=== PATIENT | male | born 1955 | race Caucasian/White ===

== ENCOUNTER 2017-06-13 02:07 | Observation (INO) | payer BC ==
[2017-06-13 02:48] LABS: CHLORIDE,CL 105 mmol/L (98-107); SODIUM,NA 142 mmol/L (136-145)
[2017-06-13] MEDS ORDERED: Lidocaine 1% 30 ML SDV INJECT ONE (03:21)
[2017-06-13] MEDS ORDERED: Diphtheria,Pertussis(Acell),Tetanus Vaccine 0.5 ML Syringe IM ONE (03:56)
--- NOTE | 2017-06-13 04:54 | ER ---
Date of Service: 06/13/2017 SUBJECTIVE: Moise presents to the emergency room following a fall. The patient's brother states that he was consuming large amounts of whiskey at [facility] and subsequently fell backwards striking the occipital portion of his head on the concrete. The patient was subsequently unresponsive for approximately 2 minutes and immediately following regaining consciousness was quite confused. EMS was summoned. On their arrival, the patient was awake, answering all questions appropriately. He had suffered a significant hematoma/stellate laceration to the right occipital portion of his head. EMS staff states that the patient was repeating himself and was confused about his activities of the night. EMS staff states that the patient has been experiencing some anterograde amnesia and has been repeating himself numerous times throughout his transport here to the hospital. The patient was placed on a long spine board with C-collar. He was not complaining of any discomfort to EMS and was hemodynamically stable during transport. PAST MEDICAL HISTORY: Denies. MEDICATIONS: None. ALLERGIES: NKDA. REVIEW OF SYSTEMS: General: Denies any recent illness. HEENT: Please see history of present illness. Denies any headache. Denies any blurred vision. Respiratory: No shortness of breath. Cardiac: Denies any chest pain. Spine: Denies any neck or back pain. GI: Denies any abdominal pain, nausea, or vomiting. : Denies any dysuria. Musculoskeletal: No myalgias or arthralgias. Denies any musculoskeletal trauma. Neurologic: Please see history of present illness. PHYSICAL EXAMINATION: General: This is a 62-year-old male patient, who is in no acute distress. Vital Signs: Please see trauma notes. HEENT: Head is normocephalic. He does have a large hematoma with subsequent pain with stellate laceration with the center portion being abraded hematoma. The laceration is roughly 8-shaped with the 4 vertical lacerations being approximately 2 cm each. No obvious trauma noted to the underlying structures of the skull. Ears, TMs are clear. There is no hemotympanum. Eyes, PERRLA. Extraocular movements are intact. There is no funduscopic papilledema noted. Chest: No chest wall trauma. Lungs: Clear to auscultation. Heart: Regular rate and rhythm. Abdomen: No abdominal trauma. Bowel sounds are normoactive. Pelvis is stable. Musculoskeletal: No extremity trauma noted. The patient moves all his extremities appropriately. Neurologic: Cranial nerves 2 through 12 are intact. The patient's speech is fluent. He is exhibiting signs of anterograde amnesia repeating himself and having to be redirected numerous times. He is moving all of his extremities appropriately. He does recall that he does have a job and states that he does need to work tomorrow. He does not recall going out to drinking tonight. His cranial nerves are otherwise intact. He is not experiencing any evidence of any facial droop or other focal neuro symptoms. CT scan of the patient's brain and C-spine were obtained and were negative for acute pathology. LABORATORY DATA: WBCs 6.5, hemoglobin is 14.5, platelets are 228. Coags; PT is 9.3, INR is 0.9. Chemistry; sodium is 142, potassium is 4.0, chloride is 105, bicarb is 25, BUN is 20, creatinine is 1.1. GFR is greater than 60. Glucose is 120. Calcium is 8.6. Blood alcohol is 253. EMERGENCY ROOM COURSE: IV access had been established by EMS. The patient was removed from the long spine board after he was brought into the [facility]. To note, a trauma code was requested by EMS. The patient was hemodynamically stable and remained hemodynamically stable during his stay in the emergency room. He was not experiencing any respiratory distress. He did continue to experience anterograde amnesia and was repeating himself and did have poor recollection of his short-term memory. He remained stable in my care in the emergency room. ASSESSMENT: 1. Closed head injury with anterograde amnesia. 2. Laceration/hematoma to the occipital portion of the head measuring a total of 5 cm in length. 3. Acute alcohol intoxication. PLAN: The patient will be admitted on observation status. We will have him in room #216, so we can monitor him closely. He does need to be redirected frequently. We will do q. hour neuro checks. At this point, we will keep his IV saline locked. The patient's tetanus was updated as well. The patient does not identify a primary care provider. He is intoxicated as is his brother, so we will keep him a code level 1 at this time. MWK: 06/13/2017 04:21:05 MODL: 06/13/2017 04:48:07 /[id number]
[2017-06-13] MEDS ORDERED: Sodium Chloride 0.9% 10 ML Syringe IV PRN (09:23)
[2017-06-13 12:04] VITALS: BP 116/71
--- NOTE | 2017-06-14 00:05 | DISCH ---
ADMITTING DIAGNOSES: 1. Trauma alert secondary to closed head injury. 2. Acute alcohol intoxication. SUBJECTIVE: Moise was admitted early this morning following a fall and subsequent closed head injury. The patient was transported to [facility] via EMS. He fell and sustained approximately 5 cm stellate laceration to the back portion of his head and was experiencing significant anterograde amnesia. He was also found to have an elevated blood alcohol of 253. The patient was admitted and had hourly neuro checks. By noon today, he was answering all questions appropriately and was able to recall events of the night. He was able to communicate with the friends and family and was deemed to be stable for discharge. PHYSICAL EXAMINATION: General: This is a 62-year-old male patient, in no acute distress. Vital signs. At discharge, blood pressure is 116/71, heart rate 89, temperature is 36.8, respiratory rate 16, O2 saturations 97%. Skin: Warm, pink, and dry. HEENT: Continued mild oozing from the laceration that was stapled last evening. Eyes, PERRLA. Extraocular movements are intact. Ears, TMs are clear. Mouth, oral mucosa is moist. Lungs: Clear to auscultation. Heart: Regular rate and rhythm. Abdomen: Soft, nontender. Neurologic: The patient is alert, answers all questions appropriately. He still has minimal recollection of the night before but is able to recall events of the morning. He was again experiencing approximately 3 minutes anterograde amnesia when he was admitted this morning, so this is a significant improvement. DISCHARGE DISPOSITION: Home. Apparently he is going to spend time with his brother today. FOLLOWUP: In 10 days for staple removal. Advised to return to the emergency room if he develops any decreased level of consciousness, confusion, nausea, vomiting, headache, or other worrisome signs or symptoms. MWK: 06/13/2017 22:40:41 MODL: 06/13/2017 23:59:58 /[id number]
--- NOTE | 2017-06-24 08:00 | ER ---
Date of Service: 06/13/2017 ADDENDUM: EMERGENCY ROOM COURSE: A total of 6 skin maritza was used to close the 5-cm laceration to the occipital portion of the patient's head. Also this ER note may be used as the patient's admission H and P. MWK: 06/24/2017 03:18:11 MODL: 06/24/2017 04:49:42 /[id number]
== END 2017-06-13 12:55 | disposition home or self-care (01) ==
LOC: VM.ED 02:07 → VM.MS 03:23 → UNDOADMOB 04:09 → VM.MS 04:09
PROVIDERS: ADMIT Physician Assistant; ATTEND Physician Assistant
DX: S09.90XA Unspecified injury of head, initial encounter (principal); R41.1 Anterograde amnesia; S01.81XA Laceration without foreign body of other part of head, initial encounter; W19.XXXA Unspecified fall, initial encounter
CPT/HCPCS: 12002; 36415; 70450; 72125; 80048; 85025; 85610; 90471; 90715; 99285; G0378; G0480

== ENCOUNTER 2020-12-12 08:25 | Day surgery (SDC) | payer BC ==
[2020-12-12] MEDS ORDERED: Propofol 200 MG/20 ML SDV ONE ×2 (09:15→10:34)
[2020-12-12] MEDS ORDERED: fentaNYL 100 MCG/2 ML SDV ONE (09:15)
[2020-12-12] MEDS: Lactated Ringers 1,000 ML IV SCH (09:23)
[2020-12-12 11:05] VITALS: BP 107/65; PULSE 70
--- NOTE | 2020-12-12 13:40 | OR ---
PREOPERATIVE DIAGNOSIS: Screening colonoscopy. POSTOPERATIVE DIAGNOSIS: Difficult upper sigmoid anatomy, unable to complete colonoscopy. COMPLICATIONS: None. SPECIMENS: None. ESTIMATED BLOOD LOSS: None. PROCEDURE IN DETAIL: This was done in the endoscopy suite. Sedation was given per Anesthesia. He was placed in left lateral position. First, a rectal exam was done and was normal. Scope was introduced into the rectum and was advanced through the rectum and sigmoid colon. Somewhere in the upper sigmoid colon I found a curve that I was unable to get past despite pressure and multiple positioning maneuvers to try to open up the area. After multiple attempts, I did finally abandon the procedure, slowly withdrew the scope. No mucosal abnormalities, lesions, or polyps were noted in the sigmoid colon or rectum that I was able to advance to. We will order a postprocedure barium enema. BKD: 12/12/2020 11:00:40 MODL: 12/12/2020 12:47:52 /[id number]
== END 2020-12-12 12:05 | disposition home or self-care (01) ==
LOC: VM.SDS 08:25
PROVIDERS: ATTEND Surgery
DX: Z12.11 Encounter for screening for malignant neoplasm of colon (principal); E78.00 Pure hypercholesterolemia, unspecified; E78.1 Pure hyperglyceridemia; N40.0 Benign prostatic hyperplasia without lower urinary tract symptoms; M10.9 Gout, unspecified; Z01.812 Encounter for preprocedural laboratory examination; Z20.828 Contact with and (suspected) exposure to other viral communicable diseases; Z79.82 Long term (current) use of aspirin; Z79.899 Other long term (current) drug therapy
CPT/HCPCS: 00812; J2704; J3010; J7120; U0002